=== PATIENT | male | born 1950 | race Native Hawaiian/Other Pacific Islander ===

== ENCOUNTER 2021-05-13 10:48 | Outpatient (CLI) | payer OTHER | END 2021-05-13 19:11 | disposition home or self-care (01) | LOC: LABW 10:48 | PROVIDERS: ATTEND Internal Medicine | DX: E87.1 Hypo-osmolality and hyponatremia (principal); N18.2 Chronic kidney disease, stage 2 (mild) | CPT/HCPCS: 81000; 82043; 82570; 83935; 84155 ==